=== PATIENT | female | born 1955 | race Caucasian/White ===

== ENCOUNTER 2017-04-24 16:20 | Outpatient (CLI) | payer OTHER | END 2017-04-24 16:21 | disposition home or self-care (01) | LOC: DTY/OP 16:20 | PROVIDERS: ATTEND Specialist | DX: Z01.818 Encounter for other preprocedural examination (principal); E66.01 Morbid (severe) obesity due to excess calories | CPT/HCPCS: 97802 ==

== ENCOUNTER 2017-05-25 10:40 | Outpatient (CLI) | payer BC | END 2017-05-25 10:41 | disposition home or self-care (01) | LOC: LABBT 10:40 | PROVIDERS: ATTEND Specialist | DX: Z01.812 Encounter for preprocedural laboratory examination (principal); E66.01 Morbid (severe) obesity due to excess calories ==

== ENCOUNTER 2017-05-25 12:00 | Inpatient (IN) | payer BC ==
--- NOTE | 2017-04-25 05:36 | HP ---
HISTORY OF PRESENT ILLNESS: Xiomy Arboleda is a 62-year-old female who lives in [facility], works for a [email or web address] company. She has attended our bariatric seminar, is interested in laparoscopic sleeve gastrectomy versus gastric bypass after further discussion, she is inclined to the sleeve. Max silvestre' had a sleeve four years ago, has done very well. She has had friends that had bariatri c surgery, type of which she is uncertain and they have not done well long-term. I have discussed th at they most likely had a gastroplasty, but is hard to know what to say about this without during thi s specific procedure. The patient is 5 feet 1 inch, 229 pounds, 43 BMI. She has tried numerous weig ht loss efforts including Weight Watchers, Atkins and other dietary efforts losing 10-20 pounds witho ut durable success. She hopes to lose weight to become more active to decrease the pain in her knees . She quit smoking 5 years ago. She denies having any problems with reflux or urinary incontinence. Her knees are starting to bother her. PAST SURGICAL HISTORY: Total abdominal hysterectomy, bilateral salpingo-oophorectomy after tubal lig ation prior to that, she had uterine cancer, subsequently undergoing laparoscopic lymph node biopsy b enign and is considered to have a curative resection. She had a benign growth from her ear removed. PAST MEDICAL HISTORY: Otherwise noncontributory. She has arthralgias. She does have occasional ref lux and takes Dexilant at night. MEDICATIONS: Breo inhaler once a day, sertraline 100 mg at bedtime, Robinul 1 mg at bedtime for rest less leg syndrome, and Dexilant 60 mg a day. ALLERGIES: None. SOCIAL HISTORY: Tobacco none for 5 years. REVIEW OF SYSTEMS: Ten-point noncontributory. She has never had a colonoscopy. PHYSICAL EXAMINATION: VITAL SIGNS: 5 feet 1 inch, 229 pounds, 43 BMI, 132/58, 77, 98.8 degrees. HEAD, EARS, EYES, NOSE, AND THROAT: Unremarkable. LUNGS: Clear to auscultation. CARDIAC: Regular rate and rhythm without murmur or gallop. ABDOMEN: Soft, nontender, no masses. EXTREMITIES: Unremarkable. ASSESSMENT AND PLAN: 1. Morbid obesity, 5 feet 1 inch, 229 pounds, 43 BMI with occasional reflux, not debilitating well c ontrolled on Dexilant and arthralgias in the knees. She is a good candidate for bariatric surgery. She has seen the psychologist and baseline laboratories are all normal except for moderately low margarita min D for which replacement protocol will be initiated. She has an appointment to see the dietitian today. She has previously seen a international recruiter, earlier this year had an EKG and screening for PAD, w hich was negative. She has had a stress test. She does not have stress related chest pain. I have asked her to see a international recruiter and we will arrange for her to see her international recruiter in [facility] p rior to her surgery have cardiac clearance. Risk of surgery including infection, bleeding, reoperati on, leakage, possible revisions open surgery have been discussed. Questions answered. Discussions a bout merits of gastric bypass versus sleeve been undertaken and she is inclined towards the sleeve. Her primary care physician is Dr. Ahmadi in [place], [place]. She has a supportive family and is willing t o attend postoperative support groups and followups to maximize support. 2. Chronic obstructive pulmonary disease, inhaler she takes. Smoking cessation five years ago. 3. Arthralgias in knees. 4. Mild reflux. This is not prohibitive for sleeve per discussions.
[2017-05-25 11:19] VITALS: BMI 43.2
--- NOTE | 2017-05-25 21:25 | ADD-HP ---
ADDENDUM: Xiomy Arboleda returns today after bariatric workup as previously seen, she has completed the [facility] ic seminar, seen the preoperative dietitian regarding dietary changes perioperatively for laparoscopi c sleeve gastrectomy. She understands the risks of infection, bleeding, reoperation, anastomotic rogelio kage, failure to lose weight. She understands she will have to be active participant with good food selections and activity level to maximize her weight loss and outcomes. The patient has obtained car diac clearance is required by insurance from her physician in [place]. Her stress test was negative . EKG normal. PAST SURGICAL HISTORY: Total hysterectomy, bilateral salpingo-oophorectomy, tubal ligation prior to that, history of uterine cancer, subsequently undergoing laparoscopic biopsy which was benign, consid ered curative. PAST MEDICAL HISTORY: Uterine cancer, arthralgias, occasional reflux for which she takes . MEDICATIONS: Breo inhaler once a day, sertraline 100 mg at bedtime, Robinul for restless leg syndrom e 1 mg at bedtime, Dexilant 60 mg a day. ALLERGIES: None. TOBACCO: None for 5 years, abuse prior to that. REVIEW OF SYSTEMS: Ten point noncontributory. PHYSICAL EXAMINATION: VITAL SIGNS: A 62-year-old, 5 feet 1 inches, 229 pounds, 43 BMI, 117/61, 76, 99 degrees. HEAD, EYES, EARS, NOSE, AND THROAT: Unremarkable. LUNGS: Clear to auscultation. CARDIAC: Regular rate and rhythm without murmur or gallop. ABDOMEN: Soft, nontender, no masses. EXTREMITIES: Unremarkable. ASSESSMENT AND PLAN: Morbid obesity, BMI 43, 229 pounds, recommend laparoscopic sleeve gastrectomy. She understands risks and benefits as discussed above. Questions have been answered. Consent wong d in the office.
[2017-05-31] MEDS ORDERED: Heparin 5,000 UNITS/ML VIAL ONE (06:01)
[2017-05-31] MEDS ORDERED: Ketorolac Tromethamine 30 MG/ML VIAL ONE (06:01)
[2017-05-31] MEDS ORDERED: Scopolamine 1.5 mg/72 hour Patch ONE (06:01)
[2017-05-31] MEDS ORDERED: cefOXitin 2 GM, Syringe 1 ML in Sterile Water 10 ML SLOW IVP SCH (06:15)
[2017-05-31] MEDS ORDERED: Bupivacaine/Epinephrine 0.25% 30 ML VIAL ONE (06:34)
[2017-05-31] MEDS ORDERED: Promethazine HCl 25 MG/ML VIAL ONE (06:57)
[2017-05-31] MEDS ORDERED: HYDROmorphone 0.5 MG/0.5 ML SYRINGE ONE (06:57)
[2017-05-31] MEDS ORDERED: Fentanyl 100 MCG/2 ML VIAL ONE ×2 (06:57→09:28)
[2017-05-31] MEDS ORDERED: Midazolam HCl 2 mg/2 ml Vial ONE (07:26)
[2017-05-31] MEDS: Pantoprazole 40 MG VIAL IVP SCH (09:00)
[2017-05-31] MEDS ORDERED: Dextrose 50% Abboject 50 ML SYRINGE SLOW IVP PRN (09:00)
[2017-05-31] MEDS ORDERED: hydrALAZINE 20 MG/ML VIAL SLOW IVP PRN (09:00)
[2017-05-31] MEDS ORDERED: Dextrose 5% in Water 1,000 ML IV PRN (09:00)
[2017-05-31] MEDS ORDERED: diphenhydrAMINE 50 MG/ML VIAL IVP PRN (09:00)
[2017-05-31] MEDS ORDERED: Ondansetron HCl/PF 4 MG/2 ML Vial IVP PRN ×2 (09:00→09:10)
[2017-05-31] MEDS ORDERED: Morphine 4 MG/ML VIAL SLOW IVP PRN ×2 (09:00)
[2017-05-31] MEDS ORDERED: HYDROmorphone 2 MG/ML VIAL SLOW IVP PRN (09:10)
[2017-05-31] MEDS ORDERED: Promethazine HCl 25 MG/ML VIAL SLOW IVP PRN (09:10)
[2017-05-31] MEDS ORDERED: Meperidine HCl/PF 25 MG/ML VIAL SLOW IVP PRN (09:10)
[2017-05-31] MEDS ORDERED: Morphine Sulfate 2 MG/ML SYRINGE SLOW IVP PRN (09:10)
--- NOTE | 2017-05-31 10:50 | OP ---
DATE OF PROCEDURE: 05/31/2017 PREOPERATIVE DIAGNOSES: Height 5 foot 1, 229 pounds, 43 BMI, morbid obesity, arthralgias. POSTOPERATIVE DIAGNOSES: Height 5 foot 1, 229 pounds, 43 BMI, morbid obesity, arthralgias. PROCEDURES: Laparoscopic sleeve gastrectomy over a 36 Persian bougie with staple line within 4.5 to 5 cm of the pylorus, postoperative upper endoscopy, no bleeding, no narrowing. SURGEON: Dr. Kulwant Gonzales ANESTHESIA: General. Local 0.25% Marcaine with epinephrine 60 mL mixed with 2% Xylocaine 10 mL. PROCEDURE: The patient taken to the operating room where under general anesthesia, abdomen was prepa red with ChloraPrep, draped in routine fashion. Local anesthetic infiltrated into skin and subcutane ous tissue about the port sites. Supraumbilical incision made and pneumoperitoneum to 15 mmHg obtain ed with the Veress needle, replacing it with a 5 port. Video laparoscope inserted. There is bilater al far lateral subcostal incisions made and 5 ports placed. Bilateral upper abdominal midclavicular incisions made and a 15 port placed on the left and a 12 port on the right. There were some omental adhesions taken down with the LigaSure to allow better visualization. Subxiphoid incision made and N athansen liver retractor placed reflecting the left lobe of liver, which was slightly fatty. It was, however, not prohibitively fatty. Laparoscopic sleeve gastrectomy initiated by taking down the shan rocolic ligament adjacent to the greater curvature of the stomach starting towards the pylorus progre ssing up to the angle of His, mobilizing the stomach posteriorly and the angle of His using the LigaS ure keeping the spleen free of harm. Dissection carried out more distally within 4 cm of the pylorus . The orogastric tube exchanged for a 36 Persian bougie placed orally by Anesthesia, visualized lapar oscopically directed towards the pylorus. Once this was in proper position, the initial green load s tapler fired Endo-KOREY 60 staying clear of the incisura giving extra room here. Nest fire was with a gold load obtained and fired staying clear of the incisura with the next fire and then serial fires u p towards the angle of His with a blue load stapler giving extra room at the angle of His to avoid en croachment on the esophagus. Once the stomach was completely divided, it was removed through the 15 port and this fascia approximated under laparoscopic visualization with a GraNee needle 0 Vicryl figu re of eight. Sleeve gastrectomy was removed and submitted to Pathology. Good hemostasis noted along the staple line obtained with clips. Upper endoscopy performed, placed the endoscope per os under direct visualization throughout the esop hagus into the stomach, directing it down towards the pylorus visualizing the pylorus. There was no bleeding or narrowing. Scope withdrawn decompressing the stomach and noting normal esophagus and GE junction. Laparoscopically evaluated. There was no hiatal hernia. At this point, I then changed gl ove and gown and returned to the laparoscopic field. Staple line hemostasis gained with clips. Good hemostasis noted. There was one superficial serosal tear adjacent to the staple line near the pylor us near the antrum of the stomach and this was reinforced with a single suture of 3-0 Vicryl GI needl e Lembert type suture incorporating the staple line and reinforcing the superficial serosal tear. Th is did not result in narrowing. Irrigant and pneumoperitoneum evacuated as good hemostasis had been obtained and all instruments removed and all skin incisions irrigated, specifically the upper mid cla vicular 15 mm port site left where the stomach had been removed. Skin approximated with interrupted subdermal 4-0 Monocryl and DermaGlue applied.
[2017-05-31] MEDS: D5 1/2 NS w/20 mEq KCL 1,000 ML IV SCH ×2 (11:24→17:57)
[2017-05-31] MEDS: Ketorolac Tromethamine 30 MG/ML VIAL IVP SCH ×3 (11:27→23:49)
[2017-05-31] MEDS: Acetaminophen 1,000 MG in Premix Bag 1 BAG IVPB SCH ×3 (11:31→23:50)
[2017-05-31] MEDS ORDERED: Ondansetron HCl/PF 4 MG/2 ML Vial ONE (16:21)
[2017-05-31] MEDS ORDERED: Propofol 200 MG/20 ML VIAL ONE (16:21)
[2017-05-31] MEDS ORDERED: Lidocaine 1% PF 5 ML VIAL ONE (16:21)
[2017-05-31] MEDS ORDERED: Glycopyrrolate 0.2 MG/ML 5 ML SYRINGE ONE (16:21)
[2017-05-31] MEDS ORDERED: PHENYLEPHRINE-NS 100 MCG/ML 10 ML SYRINGE ONE (16:21)
[2017-05-31] MEDS ORDERED: Dexamethasone 20 MG/5 ML VIAL ONE (16:21)
[2017-05-31 17:17] LABS: Hemoglobin 10.2 g/dL (12.0-16.0)
[2017-05-31] MEDS ORDERED: Enoxaparin Sodium 40 MG/0.4 ML SYRINGE SC SCH (21:00)
[2017-06-01] MEDS: D5 1/2 NS w/20 mEq KCL 1,000 ML IV SCH ×2 (03:36→04:16)
[2017-06-01] MEDS: Acetaminophen 1,000 MG in Premix Bag 1 BAG IVPB SCH ×2 (04:54→12:37)
[2017-06-01] MEDS: Ketorolac Tromethamine 30 MG/ML VIAL IVP SCH ×3 (04:54→17:28)
[2017-06-01 05:31] LABS: #Lymphocytes 1.3 thou/uL (1.20-3.40); #Monocytes 0.8 thou/uL (0.11-0.59); #Neutrophils 9.3 thou/uL (1.40-6.50); %Eosinophils 0.1 % (0.0-10.0); %Lymphocytes 11.6 % (21.0-51.0); %Monocytes 6.9 % (0.0-10.0); %Neutrophils 81.4 % (42.0-75.0); Hemoglobin 8.3 g/dL (12.0-16.0); Mean Corpuscular HGB CONC 31.5 g/dL (32.0-36.0); Mean Corpuscular Hemoglobin 28.4 pg (27.0-31.0); Mean Corpuscular Volume 90.1 fl (81.0-99.0); Platelet Count 266 thou/uL (130-400); Red Blood Cell (RBC) Count 2.91 mill/uL (4.20-5.40); White Blood Cell (WBC) Count 11.4 thou/uL (4.8-10.8)
[2017-06-01 05:38] LABS: Anion Gap 9 mmol/L (10-20); BUN (Urea Nitrogen) 12 mg/dL (9.8-20.1); Calc. Creatinine Clearance 104 mL/min (70-130); Calcium 8.2 mg/dL (7.8-10.44); Carbon Dioxide 27 mmol/L (23-31); Chloride 106 mmol/L (98-107); Estimated GFR-MDRD 63; Glucose 145 mg/dL (80-115); Potassium 5.2 mmol/L (3.5-5.1); Sodium 137 mmol/L (136-145)
[2017-06-01] MEDS: Pantoprazole 40 MG VIAL IVP SCH (08:29)
--- NOTE | 2017-06-01 08:59 | RAD ---
LIMITED UPPER GI WITH 15 ML OF GASTROGRAFIN: HISTORY: Post bariatric surgery (vertical gastric sleeves). FINDINGS: Contrast passes promptly from the esophagus into the stomach. No contrast extravasation is seen. IMPRESSION: No evidence of obstruction or leak. POS: KIMMIE
[2017-06-01 12:09] LABS: #Lymphocytes 1.4 thou/uL (1.20-3.40); #Monocytes 0.7 thou/uL (0.11-0.59); #Neutrophils 8.6 thou/uL (1.40-6.50); %Basophils 0.1 % (0.0-1.0); %Eosinophils 0.1 % (0.0-10.0); %Lymphocytes 13.2 % (21.0-51.0); %Monocytes 6.8 % (0.0-10.0); %Neutrophils 79.8 % (42.0-75.0); Hemoglobin 8.4 g/dL (12.0-16.0); Mean Corpuscular HGB CONC 30.9 g/dL (32.0-36.0); Mean Corpuscular Hemoglobin 28.1 pg (27.0-31.0); Mean Corpuscular Volume 90.8 fl (81.0-99.0); Mean Platelet Volume 7.4 fL (7.4-10.4); Platelet Count 225 thou/uL (130-400); Red Blood Cell (RBC) Count 2.99 mill/uL (4.20-5.40); White Blood Cell (WBC) Count 10.8 thou/uL (4.8-10.8)
[2017-06-01] MEDS ORDERED: Hydrocodone-Acetamin 15 ML UDCUP PO PRN (16:00)
[2017-06-01 16:25] LABS: #Lymphocytes 2.1 thou/uL (1.20-3.40); #Monocytes 0.6 thou/uL (0.11-0.59); #Neutrophils 7.8 thou/uL (1.40-6.50); %Eosinophils 0.3 % (0.0-10.0); %Lymphocytes 20.2 % (21.0-51.0); %Monocytes 5.8 % (0.0-10.0); %Neutrophils 73.7 % (42.0-75.0); Hemoglobin 7.7 g/dL (12.0-16.0); Mean Corpuscular HGB CONC 31.9 g/dL (32.0-36.0); Mean Corpuscular Hemoglobin 28.8 pg (27.0-31.0); Mean Corpuscular Volume 90.2 fl (81.0-99.0); Mean Platelet Volume 8.1 fL (7.4-10.4); Platelet Count 242 thou/uL (130-400); RBC Distribution Width 13.1 % (11.5-14.5); Red Blood Cell (RBC) Count 2.69 mill/uL (4.20-5.40); White Blood Cell (WBC) Count 10.5 thou/uL (4.8-10.8)
--- NOTE | 2017-06-01 23:05 | PRG ---
DATE OF SERVICE: 06/01/2017 SUBJECTIVE: Xiomy Arboleda is doing well today. She was slightly dizzy this morning, but that has r esolved by the afternoon. She is tolerating her bariatric clear liquids. Her contrast study this mo rning was normal. OBJECTIVE: LUNGS: Clear to auscultation. CARDIAC: Regular rate and rhythm without murmur or gallop. ABDOMEN: Soft, nontender. Surgical wounds look good. Bloody drainage from the left upper quadrant wound from this morning, but has not drained in the last 4-5 hours. LABORATORY DATA: White count 10.5, hemoglobin 7 last night because she had a blood pressure in the 9 0s, hemoglobin was checked and it was 10.2, this morning is 8.3, at noon 8.4 and now is 7.7. She has had some bloody drainage from her left upper quadrant wound. This has ceased by this afternoon. ASSESSMENT AND PLAN: The patient is doing well, postoperative anemia with bleeding into the abdomina l wall. No evidence of intraabdominal bleeding. We would continue her bariatric full liquids. Obse rve for another night and plan discharge home in the morning after checking her CBC. She will be sta fide in [place] with relatives. She has Lortab elixir already prescribed and for her use in her vehi pedro.
[2017-06-02] MEDS: Ketorolac Tromethamine 30 MG/ML VIAL IVP SCH ×4 (01:27→18:05)
[2017-06-02 05:36] LABS: #Eosinphils 0.1 thou/uL (0.0-0.7); #Lymphocytes 1.9 thou/uL (1.20-3.40); #Monocytes 0.5 thou/uL (0.11-0.59); #Neutrophils 5.9 thou/uL (1.40-6.50); %Basophils 0.2 % (0.0-1.0); %Eosinophils 0.6 % (0.0-10.0); %Lymphocytes 22.8 % (21.0-51.0); %Monocytes 6.3 % (0.0-10.0); %Neutrophils 70.1 % (42.0-75.0); Hemoglobin 6.8 g/dL (12.0-16.0); Mean Corpuscular HGB CONC 31.5 g/dL (32.0-36.0); Mean Corpuscular Hemoglobin 28.4 pg (27.0-31.0); Mean Platelet Volume 7.5 fL (7.4-10.4); Platelet Count 190 thou/uL (130-400); RBC Distribution Width 13.1 % (11.5-14.5); Red Blood Cell (RBC) Count 2.39 mill/uL (4.20-5.40); White Blood Cell (WBC) Count 8.4 thou/uL (4.8-10.8)
[2017-06-02 16:47] VITALS: TEMP 98.8
[2017-06-02 17:01] VITALS: BP 124/69
[2017-06-02 18:00] LABS: #Eosinphils 0.1 thou/uL (0.0-0.7); #Monocytes 0.6 thou/uL (0.11-0.59); #Neutrophils 6.6 thou/uL (1.40-6.50); %Basophils 0.2 % (0.0-1.0); %Eosinophils 0.8 % (0.0-10.0); %Lymphocytes 21.4 % (21.0-51.0); %Monocytes 6.6 % (0.0-10.0); Hemoglobin 7.9 g/dL (12.0-16.0); Mean Corpuscular HGB CONC 32.5 g/dL (32.0-36.0); Mean Corpuscular Hemoglobin 28.6 pg (27.0-31.0); Mean Platelet Volume 7.6 fL (7.4-10.4); Platelet Count 209 thou/uL (130-400); RBC Distribution Width 14.3 % (11.5-14.5); Red Blood Cell (RBC) Count 2.77 mill/uL (4.20-5.40); White Blood Cell (WBC) Count 9.3 thou/uL (4.8-10.8)
== END 2017-06-02 19:05 | disposition home or self-care (01) | DRG 621 ==
LOC: SURG A 05-31 05:39
PROVIDERS: ADMIT Specialist; ATTEND Specialist
PROC: 0DB64Z3 Excision of Stomach, Percutaneous Endoscopic Approach, Vertical (ICD-10-PCS; principal; 2017-05-31)
DX: E66.01 Morbid (severe) obesity due to excess calories (principal); J44.9 Chronic obstructive pulmonary disease, unspecified; K21.9 Gastro-esophageal reflux disease without esophagitis; M25.562 Pain in left knee; M25.561 Pain in right knee; Z68.41 Body mass index [BMI] 40.0-44.9, adult; Z85.42 Personal history of malignant neoplasm of other parts of uterus; Z90.722 Acquired absence of ovaries, bilateral; Z90.79 Acquired absence of other genital organ(s); Z90.710 Acquired absence of both cervix and uterus
CPT/HCPCS: 36415; 36430; 74241; 80048; 85014; 85018; 85025; 86850; 86900; 86901; 88307; 88312; 94760; A4216; C9113; J0131; J0694; J1100; J1170; J1644; J1650; J1885; J2001; J2250; J2270; J2405; J2550; J2704; J3010; P9016